=== PATIENT | male | born 1995 | race Caucasian/White ===

== ENCOUNTER → 2018-01-15 09:53 | Outpatient (CLI) | payer OTHER, SELFPAY ==
--- NOTE | 2018-01-15 10:00 | CT_ITS ---
STUDY: CT ABDOMEN AND PELVIS WITHOUT CONTRAST REASON FOR EXAM: Male, 22 years old. Low back pain. RADIATION DOSAGE (If Supplied By Facility): CTDIvol = ( 8.13 ) mGy, DLP = ( 456.91 ) mGycm TECHNIQUE: Transaxial images were obtained from the dome of the diaphragm to the symphysis pubis without oral contrast, and without intravenous contrast. Sagittal and coronal images were reconstructed. Individualized dose optimization techniques were used for this CT. COMPARISON: None. FINDINGS: The visualized lung bases are unremarkable. The visualized portions of the heart are within normal limits. Normal liver. Normal gallbladder and extrahepatic biliary system. Normal spleen. Normal pancreas. Normal bilateral adrenal glands. Normal right kidney. Normal left kidney. Normal visualized stomach. Normal small intestine. Normal colon. The appendix is visualized and appears normal. Normal abdominal aorta. Normal inferior vena cava. Normal retroperitoneum. Normal urinary bladder. Normal abdominal wall. Loss of the normal lumbar lordosis. Moderate degree of central disc herniation at the L5-S1 level causing anterior compression of the thecal sac. CT/Abdomen/Pelvis without Cont IMPRESSION: Moderate sized central disc herniation at the L5-S1 level causing deformity of the thecal sac. Electronically Signed: Alvin Ryan MD at 11:07 EDT Tel [phone], Service support ,
--- NOTE | 2018-01-15 10:45 | RAD_ITS ---
STUDY: X-RAY - LUMBAR SPINE REASON FOR EXAM: Male, 22 years old. lower back pain for the past 6 months, no known injury, sitting down is when pain is the worst, no past surgeries TECHNIQUE: 5 view(s) of the lumbar spine were obtained. COMPARISON: None FINDINGS: There is straightening of the normal lumbar lordosis. There is no substantial scoliosis. There is a normal alignment of the vertebrae. Stool throughout the colon. Normal vertebral bodies and endplates. Normal disc space heights. The soft tissue structures are unremarkable. RAD/Lumbar Spine 2 or 3 Views IMPRESSION: There is mild straightening of the normal lumbar lordosis. This can suggest back strain. Electronically Signed: Sean Greer MD at 17:36 EDT , Service support ,
== END ==
PROVIDERS: Family Provider Internal Medicine; PCP Internal Medicine; Visit Provider Internal Medicine
DX: M54.5 Low back pain (principal)
CPT/HCPCS: 72100; 74176

== ENCOUNTER → 2019-05-21 | Outpatient (CLI) | payer OTHER, SELFPAY ==
--- NOTE | 2019-05-21 11:19 | RAD_ITS ---
STUDY: X-RAY - LUMBAR SPINE REASON FOR EXAM: Male, 23 years old. Low back pain with sciatica x2 years, no injury TECHNIQUE: 5 view(s) of the lumbar spine were obtained. COMPARISON: Previous study of 12/16/2017 FINDINGS: Normal lumbar lordosis. There is no substantial scoliosis. There is a normal alignment of the vertebrae. Normal vertebral bodies and endplates. Normal disc space heights. The soft tissue structures are unremarkable. RAD/L/S Spine Min 4 Views IMPRESSION: Normal x-ray examination of the lumbar spine. Electronically Signed: Reymundo Lezama MD at 16:52 EST , Service support ,
--- NOTE | 2019-05-21 11:25 | RAD_ITS ---
STUDY: X-RAY - SACROILIAC JOINTS REASON FOR EXAM: Male, 23 years old. Pain TECHNIQUE: 3 view(s) of the sacroiliac joints were obtained. COMPARISON: None. FINDINGS: Normal bilateral sacroiliac joints. Normal visualized sacral ala and sacrum. Normal visualized iliac bones. Normal visualized soft tissue structures. RAD/S-I Jts 3 or More Views IMPRESSION: Normal x-ray examination of the bilateral sacroiliac joints. Electronically Signed: Reymundo Lezama MD at 16:53 EST , Service support ,
== END | disposition home or self-care (01) ==
LOC: RAD.FUTURE 11:17
PROVIDERS: Family Provider Internal Medicine; PCP Internal Medicine; Referring Provider Internal Medicine; Visit Provider Internal Medicine
DX: M54.5 Low back pain (principal)
CPT/HCPCS: 72110; 72202

== ENCOUNTER 2019-06-17 10:00 | Outpatient (RCR) | payer OTHER, SELFPAY ==
--- NOTE | 2019-05-25 11:56 | HP.PTEVAL ---
Patient's Visit Information CLEVE EVANS is a 23 year old M referred to Physical Therapy by Aubree Barrett MD with a diagnosis of LBP. Date of Evaluation: 05/25/19 Physical Therapist: Alcides Burk, DPT, OCS, CSCS - Visit Plan Frequency: 2x /Week Duration: 4-6 Weeks Plan: 2x/week for 3-6 weeks for. 1. L/S ext mobs and ROM. 2. Progress to remdelling flexiona dn rotation when painfree.Amparo progression. 3. HS stretches and rollout to HEP. 4. core strength and progression to HEP. 5. Has home Tens abut may use IF ES and MH if needed. - Subjective Findings: LBP. Had PT and scan last year and had HNP. [employer] membership adn was regular. Back startedflaring up a month and half ago and had to stop. Not sure why he flared up beginning of April. Pain is LB and into L leg laterally to side of hip. Intermittent adn worse sitting at work for long time. Worse at night. Not a problem walking adn moving. Shoes hep. Sleep is uncomfortable at night. Morning is generally better unless sleeps on it wrong. No numbness or tingling. Pain is lingering most of time but worse sitting. Also hurts tanding on tile floor. 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 Enjoys working out but cannot. Hiked over summer adn enjoys outdoor and is limted by weather. Hiking can hurt. Basic ADLS are OK but putting socks on in am is rough. Therapy last year helped. stretches and band helped. Pain went away after a while. - Pain LBP Pain Intensity (Out of 10): 2 Pain Intensity Range: 0, 6 Comment: sitting worse - Objective Walks stiff adn L antalgic but I. Trasnfers are I. L/S AROM ext max limited adn flexion max limited, SB not bad. Limitations are due to pain in LB. No PA pressure tenderness. No soft tissue tenderness. reflexes 2/3 patella and achilles. Sensation LE WNL to gross light touch. + L slump adn SLR. HS max tight at about 30 degrees L SLR and pain and R at about 50 degrees. Strength LE 4+/5 without pain except for B hip flexion adn end range knee ext sitting B.(tight HS). repeated ext: INCREASED EXT rom. pT TENDENCY IS TO FLEX/s AND STAY HUNCHED EVEN AFTER CUEING, VERY TIGHT IN HS. - Goals Goal 1:: Patient have LBP ROM and positioning WNL and without pain the majority of time. Goal Time Frame: 4-6 Weeks Goal 2:: Pt have full aROM L/S including 30 ext adn 60 felxion without pain Goal Time Frame: 4-6 Weeks Goal 3:: Pt feel LBP 90% improved and sit at work without increased pain. Goal Time Frame: 4-6 Weeks Goal 4:: I appropr HEP and posture to ensure maximum potential at d/c Goal Time Frame: 4-6 Weeks - Rehabilitation Potential Physical Therapy Diagnosis: LBP likely discal in nature. Rehabilitation Potential: Good - Anticipated Interventions Patient/Client Instruction: Educate patient on: Condition, Plan of Care For the Purpose of:: To decrease pain, To increase ROM, To improve muscle performance and motor function, To improve ability of physical actions for home/community/work/leisure Therapeutic Exercise to Include: Strength training, Postural training, Flexibilty training, Passive ROM, Active ROM, Dynamic Lumbar Stabilization For the Purpose of:: To decrease pain, To increase ROM, To improve muscle performance and motor function, To increase tolerance to activity/condition/position, To improve ability of physical actions for home/community/work/leisure Manual Therapy Techniques to Include: Mobilization, Passive ROM, Soft tissue mobilization For the Purpose of:: To decrease pain, To increase ROM IF ES: Yes Thermo therapy (hot pack): Yes For the Purpose of:: To decrease pain Thank you for the opportunity to evaluate your patient. For Medicare and Medicare HMO plans, please review the plan of care and approve it. It will need to be FAXED BACK to us at [phone] for Medicare purposes. For Medicare only, by signing this I certify the plan of care. Please let me know if there are questions or concerns regarding this plan of care. Physician Signature: Date:
--- NOTE | 2019-06-17 10:54 | HP.PTDCSUM ---
HP - PT D/C Summary It has been my pleasure to treat CLEVE EVANS under orders from Aubree Barrett MD, for the diagnosis of LBP for a total of 7 visit(s). Discharge Date: 06/17/19 Please see the following information for a summary of their discharge status. - Subjective Subjective: Pain level was down. Now pain is worse again for most of day 11/20 but improving since the trip. Slept on pullout couch for 3 days. No f/u scheduled with Dr. Barrett but would like to pursue the next step.(MRI?). Continues to stretch HS at home adn press ups adn some core strength bird dogs and quadruped exercises. Exercises help at home but not permanent. Not sleeping good since vacation. - Pain LBP Pain Intensity (Out of 10): 5 left leg Pain Intensity (Out of 10): 4 - Overall Improvement % Improvement: 30 - Objective Objective/Function: L/S ext mod limtied and paiful centrally, SB min limited and painful ipsilaterally, forward flexion max limited and almost seems blocked. He is careful on his transfers adn standing up straight. OVERALL WAS IMPROVING VERY SLOWLY BUT TRIP TO [place] HAS SET HIM BACK. HE IS STILL VERY LIMITED AND SEEMS BLOCKED IN ROM AND IS APPROPRIATE FOR NEXT STEP WITH DOCTOR TO HELP WITH HIS PAIN OR FURTHER DIAGNOSTICS BEFORE CONTINUING WITH THERAPY. - Goals Goal 1:: Patient have LBP ROM and positioning WNL and without pain the majority of time. Goal Progress: Not Progressing Goal 2:: Pt have full aROM L/S including 30 ext adn 60 felxion without pain Goal Progress: PROGRESSING, 25 EXT/45 FL Goal 3:: Pt feel LBP 90% improved and sit at work without increased pain. Goal Progress: Not Progressing Goal 4:: I appropr HEP and posture to ensure maximum potential at d/c Goal Progress: Progressing - Plan Plan: D/C - D/C Information Discharge Comments: Patient is up and down with pain and not progressing smoothly with movement almost appearing blocked in certain motions of flexion and is appropriate for next medical step to expedite pain relief adn movement(MRI, inj?) If there are questions or concerns regarding this patient's physical therapy, please feel free to call me at [phone]. Thank you for the referral of this patient. Sincerely, Alcides Burk, DPT, OCS, CSCS
== END 2019-06-17 14:18 | disposition home or self-care (01) ==
LOC: PT 10:00
PROVIDERS: Family Provider Internal Medicine; PCP Internal Medicine; Referring Provider Internal Medicine; Visit Provider Internal Medicine
DX: M54.5 Low back pain (principal)
CPT/HCPCS: 97014; 97110; 97162; 97530; G0283

== ENCOUNTER → 2019-06-30 12:23 | Outpatient (CLI) | payer OTHER, SELFPAY ==
--- NOTE | 2019-06-30 12:29 | MRI_ITS ---
STUDY: MRI LUMBAR SPINE WITHOUT CONTRAST REASON FOR EXAM: Male, 24 years old. Low back pain, left hip pain. TECHNIQUE: Standardized fat and water weighted pulse sequences were obtained in the sagittal and axial planes. COMPARISON: None FINDINGS: T12-L1: Normal endplates. Normal disc height, hydration and morphology. Normal bilateral facet joints. Normal central canal and bilateral lateral recesses. Normal bilateral intervertebral neural foramina. There is straightening of the normal lumbar lordosis. There is no substantial scoliosis. Normal conus medullaris that terminates at the L1/L2. L1-2: Normal endplates. Normal disc height, hydration and morphology. Normal bilateral facet joints. Normal central canal and bilateral lateral recesses. Normal bilateral intervertebral neural foramina. L2-3: Normal endplates. Normal disc height, hydration and morphology. Normal bilateral facet joints. Normal central canal and bilateral lateral recesses. Normal bilateral intervertebral neural foramina. L3-4: Normal endplates. Normal disc height, hydration and morphology. Normal bilateral facet joints. Normal central canal and bilateral lateral recesses. Normal bilateral intervertebral neural foramina. L4-5: Mild bilateral facet hypertrophy with fluid in the facet joints consistent with instability and mild ligament flavum hypertrophy. Large central disc protrusion produces severe spinal stenosis with severe bilateral lateral recess stenosis with effacement of the L5 nerve roots bilaterally L5-S1: Mild bilateral facet hypertrophy with fluid in the facet joints consistent with instability. 2 mm retrolisthesis of L5 on S1 with a moderate sized central disc protrusion produces moderate spinal stenosis with mild bilateral lateral recess stenosis with abutment of the S1 nerve roots bilaterally and mild bilateral neural foraminal stenosis. Normal visualized sacral ala. Normal visualized paraspinous soft tissue structures. MRI/Spine Lumbar (Routine) IMPRESSION: Multilevel degenerative changes, as described above. Electronically Signed: Fabian Sharma MD at 16:13 EST Tel , Service support ,
--- NOTE | 2019-06-30 12:29 | MRI_ITS ---
STUDY: MRI BILATERAL HIPS T PELVIS REASON FOR EXAM: Low back pain extending into left leg. TECHNIQUE: Standardized fat and water weighted pulse sequences were obtained in all 3 orthogonal planes. COMPARISON: None. FINDINGS: RIGHT HIP Normal hip joint without articular joint space narrowing. Normal right acetabulum. Normal right labrum. Normal right femoral head. Normal right femoral neck and intratrochanteric region. Normal right gluteus minimus, medius and iliopsoas tendons and distal insertions. Normal right superior and inferior pubic rami. Normal right pubic symphysis. Normal right ischial tuberosity. Normal origin of the right hamstring tendons. Normal visualized right iliac wing, sacroiliac joint, and sacral ala. The piriformis muscles are bilaterally symmetric in size without edema. LEFT HIP Normal left hip joint without articular joint space narrowing. Normal left acetabulum. Normal left labrum. Normal left femoral head. Normal left femoral neck and intratrochanteric region. Normal left gluteus minimus, medius and iliopsoas tendons and distal insertions. Normal left superior and inferior pubic rami. Normal left pubic symphysis. Normal left ischial tuberosity. Normal origin of the left hamstring tendons. Normal visualized left iliac wing, sacroiliac joint, and sacral ala. Normal visualized soft tissue structures of the pelvis. MRI/Pelvis (Routine) IMPRESSION: Normal MRI of the bilateral hips/pelvis. Electronically Signed: Yusef Ott MD at 14:17 EST Tel , Service support ,
== END ==
PROVIDERS: Family Provider Internal Medicine; PCP Internal Medicine; Referring Provider Internal Medicine; Visit Provider Internal Medicine
DX: M54.5 Low back pain (principal)
CPT/HCPCS: 72148; 72195

== ENCOUNTER → 2021-04-17 09:49 | Outpatient (CLI) | payer OTHER, SELFPAY ==
--- NOTE | 2021-04-17 09:52 | RAD_ITS ---
STUDY: X-RAY CHEST REASON FOR EXAM: Male, 25 years old. Cough TECHNIQUE: Frontal and lateral views of the chest COMPARISON: None. FINDINGS: The lungs are clear. There are no pleural effusions. There is no pneumothorax. The heart is normal in size. The visualized osseous structures are within normal limits. RAD/Chest PA and Lateral IMPRESSION: Clear lungs. Electronically Signed: Stanislav Perez MD at 10:16 EDT Tel , Service support ,
== END ==
PROVIDERS: PCP Internal Medicine; Referring Provider Internal Medicine; Visit Provider Internal Medicine
DX: R05.9 Cough, unspecified (principal)
CPT/HCPCS: 71046

== ENCOUNTER → 2023-05-12 | Outpatient (CLI) | payer BC, SELFPAY ==
--- NOTE | 2023-05-12 07:39 | US_ITS ---
STUDY: ABDOMINAL ULTRASOUND - RIGHT UPPER QUADRANT REASON FOR VISIT: Male, 27 years old . Epigastric pain. TECHNIQUE: Ultrasound evaluation of the right upper quadrant was performed with real-time and static chester-scale imaging. TECHNICAL QUALITY: Adequate. COMPARISON: None. FINDINGS: Liver: The liver measures 16.9 cm. There is increased echogenicity consistent with fatty infiltration. The bile ducts are within normal limits. There is hepatic color flow. The direction of portal flow is hepatopetal. There is no demonstrated mass lesion. Gallbladder: Normal distended gallbladder. The gallbladder wall measures 1.7 mm. There is a negative sonographic Parr''s sign. There is no pericholecystic fluid. There are no gallstones. Common Bile Duct (C.B.D.): The common bile duct measures 2.2 mm. Pancreas: Normal size of the head, body and tail of the pancreas. There is increased echogenicity of the pancreas. There is no demonstrated pancreatic mass or cyst. Right Kidney: Normal size of the right kidney. The right kidney measures 11.1 cm x 5.8 cm x 5.5 cm. Normal renal cortex. The right cortex measures 1.8 cm. There is no demonstrated renal mass or cyst. There is no right hydronephrosis. US/Abdomen Limited IMPRESSION: Fatty infiltration of the liver. Electronically Signed: Alvin Ryan MD at 14:57 EDT ,
== END | disposition home or self-care (01) ==
LOC: US 07:36
PROVIDERS: PCP Internal Medicine; Referring Provider Internal Medicine; Visit Provider Internal Medicine
DX: R10.13 Epigastric pain (principal)
CPT/HCPCS: 76705

== ENCOUNTER → 2024-05-25 | Outpatient (CLI) | payer BC, SELFPAY | END | disposition home or self-care (01) | LOC: MTLAB 13:47 | PROVIDERS: PCP Internal Medicine; Referring Provider Dermatology; Visit Provider Dermatology | DX: Z11.59 Encounter for screening for other viral diseases (principal); L24.9 Irritant contact dermatitis, unspecified cause; A63.0 Anogenital (venereal) warts | CPT/HCPCS: 36415; 86695; 86696 ==

== ENCOUNTER → 2025-02-16 | Outpatient (CLI) | payer BC, SELFPAY ==
[2025-02-16 18:43] LABS: HIV Nonreactive (Nonreactive); Syphilis Antibodies Nonreactive (Nonreactive)
== END | disposition home or self-care (01) ==
LOC: MTLAB 15:50
PROVIDERS: PCP Internal Medicine; Referring Provider Internal Medicine; Visit Provider Internal Medicine
DX: N39.43 Post-void dribbling (principal)
CPT/HCPCS: 36415; 86703; 86780; 87491; 87591